=== PATIENT | female | born 1980 | race Native Hawaiian/Other Pacific Islander ===

== ENCOUNTER 2017-05-25 18:32 | Emergency (ER) | payer OTHER ==
[2017-05-25 19:51] LABS: Alanine Aminotransferase 25 units/L (7-56); Albumin 4.3 g/dL (3.9-5); Alkaline Phosphatase 60 units/L (35-129); Anion Gap 15 mmol/L; BUN/Creatinine Ratio 23; Blood Urea Nitrogen 14 mg/dL (7-17); Calcium 9.2 mg/dL (8.4-10.2); Carbon Dioxide 25 mmol/L (22-30); Chloride 99.5 mmol/L (98-107); Glucose 97 mg/dL (65-100); Sodium 135 mmol/L (137-145); Total Protein 6.5 g/dL (6.3-8.2)
[2017-05-25 20:25] LABS: Urine Drugs of Abuse Note Disclamer
[2017-05-25 20:26] LABS: Basophils % (Auto) 0.4 % (0.0-1.8); Eosinophils % (Auto) 0.6 % (0.0-4.3); Hematocrit 41.9 % (30.3-42.9); Hemoglobin 14.2 gm/dl (10.1-14.3); Mean Corpuscular HGB Conc 34 % (30-34); Mean Corpuscular Hemoglobin 30 pg (28-32); Mean Corpuscular Volume 87 fl (79-97); Platelet Count 266 K/mm3 (140-440); Red Blood Count 4.81 M/mm3 (3.65-5.03); Red Cell Distribution Width 13.4 % (13.2-15.2); White Blood Count 10.7 K/mm3 (4.5-11.0)
[2017-05-25 20:58] LABS: Bilirubin,Urine NEG (Negative); Blood,Urine NEG (Negative); Ketones,Urine NEG (Negative); Leukocyte Esterase,Urine NEG (Negative); Mucus,Urine FEW /HPF; Nitrite,Urine NEG (Negative); Protein,Urine <15 mg/dL mg/dL (Negative); RBC,Urine < 1.0 /HPF (0.0-6.0); Urobilinogen,Urine < 2.0 mg/dL (<2.0); WBC,Urine < 1.0 /HPF (0.0-6.0)
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
[2017-05-25] MEDS ORDERED: TORADOL IM ONE (21:33)
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
[2017-05-26 01:21] VITALS: BP 129/69
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
== END 2017-05-26 03:49 | disposition home or self-care (01) ==
LOC: ED 18:32
DX: M54.2 Cervicalgia (principal); M54.5 Low back pain; M54.6 Pain in thoracic spine; M47.9 Spondylosis, unspecified; Z98.51 Tubal ligation status; V89.2XXA Person injured in unspecified motor-vehicle accident, traffic, initial encounter; Y93.89 Activity, other specified; Y99.8 Other external cause status; Y92.89 Other specified places as the place of occurrence of the external cause
CPT/HCPCS: 36415; 72125; 72128; 72131; 73502; 80053; 80307; 81001; 81025; 85025; 93005; 93010; 96372; 99285; J1885

== ENCOUNTER 2019-03-11 22:38 | Emergency (ER) | payer SELFPAY ==
[2019-03-11 23:41] VITALS: BP 143/84
[2019-03-12 01:20] LABS: Red Blood Count 4.63 M/mm3 (3.65-5.03)
[2019-03-12 01:21] LABS: Basophils % (Auto) 0.4 % (0.0-1.8); Hemoglobin 14.1 gm/dl (10.1-14.3); Lymphocytes % (Auto) 27.2 % (13.4-35.0); Mean Corpuscular HGB Conc 34 % (30-34); Mean Corpuscular Volume 89 fl (79-97); Mean Platelet Volume 7.8 fl (6-12); Platelet Count 273 K/mm3 (140-440); Red Cell Distribution Width 13.8 % (13.2-15.2)
[2019-03-12 01:22] LABS: Eosinophils # (Auto) 0.2 K/mm3 (0.0-0.4); Lymphocytes # (Auto) 2.8 K/mm3 (1.2-5.4); Monocytes # (Auto) 0.9 K/mm3 (0.0-0.8)
[2019-03-12 01:39] LABS: Alanine Aminotransferase 20 units/L (7-56); Albumin 4.3 g/dL (3.9-5); BUN/Creatinine Ratio 20; Blood Urea Nitrogen 16 mg/dL (7-17); Calcium 9.3 mg/dL (8.4-10.2); Hemolysis Index 3
[2019-03-12 01:45] LABS: Mucus,Urine FEW /HPF
[2019-03-12 02:41] LABS: Bilirubin,Urine Negative (Negative); Color,Urine Yellow (Yellow)
[2019-03-12 02:42] LABS: Blood,Urine Negative (Negative)
[2019-03-12] MEDS ORDERED: MORPHINE IV ONE (05:57)
[2019-03-12] MEDS ORDERED: NACL 0.9% 1000 ML 1,000 ML IV ONE (05:57)
[2019-03-12] MEDS ORDERED: ZOFRAN IV ONE (05:57)
[2019-03-12] MEDS ORDERED: PEPCID IV ONE (05:58)
--- NOTE | 2019-03-12 07:18 | Cat Scan Report ---
CT of the abdomen and pelvis with contrast INDICATION: Abdominal pain with nausea and vomiting COMPARISON: None FINDINGS: Lung bases are clear. The liver, spleen, pancreas, adrenal glands and kidneys all appear no rmal. No definite gallbladder or biliary tree abnormality. No fluid or adenopathy in the upper abdome n. CT of the pelvis shows a normal appendix. There are no ureteral stones seen. No stone fragments seen laterally. Multiple uterine fibroids are present however. No diverticulosis or diverticulitis. No her geenva or bowel obstruction. No significant skeletal lesion. There is a 2.4 cm right ovarian cyst withou t free fluid. IMPRESSION: Uterine fibroids with right ovarian cyst. Otherwise negative study. Automated exposure control was utilized to diminish radiation dose. Signer Name: Fazal Espinosa MD Signed: 03/12/2019 7:14 AM Workstation Name: [id number]
--- NOTE | 2019-03-12 07:37 | Emergency Department Report ---
HPI - General Chief Complaint: Abdominal Pain Time Seen by Provider: 03/12/19 07:08 - HPI HPI: PT COMES TO ER CO OF ABD PAIN WITH N/V. PAIN IS ACHY IN LOWER BILATERAL PAIN. VSS. NON TOXIC. HAS TAKEN NOTHING AT HOME. 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 ED Past Medical Hx - Past Medical History Previous Medical History?: Yes Additional medical history: Ovarian Cyst - Surgical History Past Surgical History?: Yes Additional Surgical History: tubal ligation - Social History Smoking Status: Never Smoker Substance Use Type: None - Medications Home Medications: Home Medications Medication Instructions Recorded Confirmed Last Taken Type Ondansetron [Zofran Odt] 4 mg PO Q8HR PRN #10 tab.rapdis 03/12/19 Unknown Rx ED Review of Systems ROS: Stated complaint: ABDOMINAL PAIN AROUNG RIB CAGE/BURNING/SWOLLING Other details as noted in HPI Comment: All other systems reviewed and negative Physical Exam - Physical Exam Vital Signs: Vital Signs 03/11/19 23:40 Temperature 97.6 F Pulse Rate 67 Respiratory 18 Rate Blood Pressure 143/84 O2 Sat by Pulse 100 Oximetry Physical Exam: A/O X 4 S1S2 LUNGS CTA ABD SNT AMBULATORY NEUROVASC INTACT ED Course Vital Signs 03/11/19 23:40 Temperature 97.6 F Pulse Rate 67 Respiratory 18 Rate Blood Pressure 143/84 O2 Sat by Pulse 100 Oximetry ED Medical Decision Making - Lab Data Result diagrams: 03/11/19 23:52 03/11/19 23:52 - Radiology Data Radiology results: report reviewed, image reviewed - Medical Decision Making Labs 03/11/19 03/11/19 03/11/19 23:52 23:52 23:52 WBC 10.3 RBC 4.63 Hgb 14.1 Hct 41.0 MCV 89 MCH 30 MCHC 34 RDW 13.8 Plt Count 273 Lymph % (Auto) 27.2 [place] % (Auto) 9.0 H Eos % (Auto) 2.0 Baso % (Auto) 0.4 Lymph # 2.8 [place] # 0.9 H Eos # 0.2 Baso # 0.0 Seg Neutrophils % 61.4 Seg Neutrophils # 6.3 Sodium 140 Potassium 4.2 Chloride 104.1 Carbon Dioxide 27 Anion Gap 13 BUN 16 Creatinine 0.8 Estimated GFR > 60 BUN/Creatinine Ratio 20 Glucose 110 H Calcium 9.3 Total Bilirubin 0.30 AST 18 ALT 20 Alkaline Phosphatase 69 Total Protein 7.5 Albumin 4.3 Albumin/Globulin Ratio 1.3 Lipase 60 HCG, Qual Negative Urine Color Urine Turbidity Urine pH Ur Specific [place] Urine Protein Urine Glucose (UA) Urine Ketones Urine Blood Urine Nitrite Ur Reducing Substances Urine Bilirubin Urine Ictotest Urine Urobilinogen Ur Leukocyte Esterase Urine WBC (Auto) Urine RBC (Auto) U Epithel Cells (Auto) Urine Mucus 03/12/19 00:25 WBC RBC Hgb Hct MCV MCH MCHC RDW Plt Count Lymph % (Auto) [place] % (Auto) Eos % (Auto) Baso % (Auto) Lymph # [place] # Eos # Baso # Seg Neutrophils % Seg Neutrophils # Sodium Potassium Chloride Carbon Dioxide Anion Gap BUN Creatinine Estimated GFR BUN/Creatinine Ratio Glucose Calcium Total Bilirubin AST ALT Alkaline Phosphatase Total Protein Albumin Albumin/Globulin Ratio Lipase HCG, Qual Urine Color Yellow Urine Turbidity Hazy Urine pH 6.0 Ur Specific [place] 1.030 Urine Protein 30 mg/dl Urine Glucose (UA) Negative Urine Ketones Negative Urine Blood Negative Urine Nitrite Negative Ur Reducing Substances Not Reportable Urine Bilirubin Negative Urine Ictotest Not Reportable Urine Urobilinogen 0.0 Ur Leukocyte Esterase Negative Urine WBC (Auto) 2.0 Urine RBC (Auto) 3.0 U Epithel Cells (Auto) 3.0 Urine Mucus Few Vital Signs 03/11/19 23:40 Temperature 97.6 F Pulse Rate 67 Respiratory 18 Rate Blood Pressure 143/84 O2 Sat by Pulse [address] NOTED MEDICATED FOR PAIN IN ER WITH RELIEF DC HOME WITH FAMILY AND OBGYN FOLLOW UP - Differential Diagnosis RO PREG/UTI/ACUTE ABD Critical care attestation.: If time is entered above; I have spent that time in minutes in the direct care of this critically ill patient, excluding procedure time. ED Disposition Clinical Impression: Uterine fibroid, Ovarian cyst Disposition: DC-01 TO HOME OR SELFCARE Is pt being admited?: No Does the pt Need Aspirin: No Condition: Stable Instructions: Uterine Fibroids (ED), Ovarian Cyst (ED) Additional Instructions: MOTRIN OR TYLENOL OVER THE COUNTER FOR PAIN WARM COMPRESSES TO ABDOMEN FOLLOW UP WITH SPECIALIST REFERRAL BELOW TAKE THIS PAPER WORK WITH YOU TO THE VISIT DIET AND ACTIVITY TOLERATED Referrals: RAHUL TONG MD [Staff Physician] - 3-5 Days Time of Disposition: 07:37 Print Language: THAI
== END 2019-03-12 08:07 | disposition home or self-care (01) ==
LOC: ED 22:38
DX: N83.291 Other ovarian cyst, right side (principal); D25.9 Leiomyoma of uterus, unspecified; Z98.51 Tubal ligation status; Z79.899 Other long term (current) drug therapy
CPT/HCPCS: 36415; 74177; 80053; 81001; 83690; 84703; 85025; 96361; 96374; 96375; 99284; J2270; J2405; J7030; Q9967

== ENCOUNTER 2020-12-01 00:31 | Emergency (ER) | payer SELFPAY ==
[2020-12-01] MEDS ORDERED: ONDANSETRON 4 MG/2 ML INJ IV ONE (07:34)
[2020-12-01] MEDS ORDERED: MORPHINE 4 MG/1 ML INJ IV ONE (07:34)
--- NOTE | 2020-12-01 07:39 | Emergency Department Report ---
ED Abdominal Pain HPI - General Chief Complaint: Abdominal Pain Stated Complaint: ABDOMINAL PAIN Time Seen by Provider: 12/01/20 07:27 Source: patient Mode of arrival: Ambulatory Limitations: Language Barrier - History of Present Illness Initial Comments: Patient is 40 years old morbidly obese female with no significant past medical history. Patient s/p: Cholecystectomy last year. Patient presented to the ER complaining of right upper quadrant and right flank pain for the last 7 days. Patient described her pain as sharp with no radiation. Patient denied any nausea, vomiting or diarrhea. She also denied any urinary frequency or dysuria. No vaginal discharge or vaginal bleeding. MD Complaint: abdominal pain -: days(s) (7) Location: RUQ, R flank Radiation: none Migration to: no migration Severity: moderate Severity scale (0 -10): 6 Quality: sharp Consistency: constant - Related Data Previous Rx's Medication Instructions Recorded Last Taken Type Docusate Sodium [Colace] 100 mg PO BID PRN #20 capsule 10/24/19 Unknown Rx oxyCODONE /ACETAMINOPHEN [Percocet 1 tab PO Q6HR PRN #14 tablet 10/24/19 Unknown Rx 5/325] Ondansetron [Zofran Odt] 4 mg PO Q8HR PRN #14 tab.rapdis 12/01/20 Unknown Rx traMADoL [Ultram 50 MG tab] 50 mg PO Q4HR PRN #14 tablet 12/01/20 Unknown Rx Allergies Allergy/AdvReac Type Severity Reaction Status Date / Time No Known Allergies Allergy Verified 05/25/17 18:57 ED Review of Systems ROS: Stated complaint: ABDOMINAL PAIN Other details as noted in HPI Comment: All other systems reviewed and negative Constitutional: denies: chills, fever Respiratory: denies: cough, shortness of breath, SOB with exertion Gastrointestinal: abdominal pain. denies: nausea, vomiting, diarrhea, constipation, hematemesis, melena, hematochezia Genitourinary: denies: urgency, dysuria Musculoskeletal: back pain Neurological: denies: headache, weakness ED Past Medical Hx - Past Medical History Previous Medical History?: Yes Hx Hypertension: No Hx Liver Disease: No Hx Renal Disease: No Additional medical history: Ovarian Cyst - Surgical History Past Surgical History?: Yes Hx Cholecystectomy: Yes Additional Surgical History: tubal ligation - Social History Smoking Status: Never Smoker Substance Use Type: None - Medications Home Medications: Home Medications Medication Instructions Recorded Confirmed Last Taken Type Docusate Sodium [Colace] 100 mg PO BID PRN #20 capsule 10/24/19 Unknown Rx oxyCODONE /ACETAMINOPHEN [Percocet 1 tab PO Q6HR PRN #14 tablet 10/24/19 Unknown Rx 5/325] Ondansetron [Zofran Odt] 4 mg PO Q8HR PRN #14 tab.rapdis 12/01/20 Unknown Rx traMADoL [Ultram 50 MG tab] 50 mg PO Q4HR PRN #14 tablet 12/01/20 Unknown Rx ED Physical Exam - General Limitations: Language Barrier General appearance: alert, in distress (pain) - Head Head exam: Present: atraumatic, normocephalic - Eye Eye exam: Present: normal appearance - ENT ENT exam: Present: normal exam, normal orophraynx, mucous membranes moist - Neck Neck exam: Present: normal inspection, full ROM. Absent: tenderness, meningismus - Respiratory Respiratory exam: Present: normal lung sounds bilaterally - Cardiovascular Cardiovascular Exam: Present: regular rate, normal rhythm, normal heart sounds - GI/Abdominal GI/Abdominal exam: Present: soft, tenderness, normal bowel sounds. Absent: distended, guarding, rebound, rigid, organomegaly, mass, bruit, pulsatile mass - Extremities Exam Extremities exam: Present: normal inspection, full ROM, normal capillary refill. Absent: tenderness - Back Exam Back exam: Present: normal inspection, full ROM. Absent: CVA tenderness (R), CVA tenderness (L) - Neurological Exam Neurological exam: Present: alert, oriented X3, CN II-XII intact - Psychiatric Psychiatric exam: Present: normal mood - Skin Skin exam: Present: warm, intact, normal color ED Course Vital Signs 12/01/20 12/01/20 12/01/20 00:43 07:44 07:45 Temperature 98.2 F Pulse Rate 73 60 Respiratory 20 13 Rate Blood Pressure 140/84 O2 Sat by Pulse 100 99 98 Oximetry 12/01/20 12/01/20 12/01/20 08:00 08:30 09:00 Temperature Pulse Rate 64 62 61 Respiratory 13 12 12 Rate Blood Pressure 129/79 127/74 129/59 O2 Sat by Pulse 100 100 99 Oximetry 12/01/20 12/01/20 12/01/20 09:30 10:00 10:40 Temperature Pulse Rate 60 Respiratory 12 19 Rate Blood Pressure 118/59 110/55 123/70 O2 Sat by Pulse 100 99 99 Oximetry 12/01/20 12/01/20 11:00 11:16 Temperature Pulse Rate 59 L 59 L Respiratory 14 Rate Blood Pressure 104/50 123/70 O2 Sat by Pulse 100 100 Oximetry ED Medical Decision Making - Lab Data Result diagrams: 12/01/20 08:28 12/01/20 08:28 - Radiology Data Radiology results: report reviewed - Medical Decision Making Patient is 40 years old morbidly obese female with no significant past medical history. Patient s/p: Cholecystectomy last year. Patient presented to the ER complaining of right upper quadrant and right flank pain for the last 7 days. Patient described her pain as sharp with no radiation. Patient denied any nausea, vomiting or diarrhea. She also denied any urinary frequency or dysuria. No vaginal discharge or vaginal bleeding. Labs reviewed and is unremarkable. CT abdomen and pelvis showed no significant abnormality however there is a uterine fibroid. Patient received multiple doses of pain medication including morphine and fentanyl. Patient stated that she is feeling much better. Patient advised to follow-up with commercial production editor in the next 2 to 3 days and to return to the ER if she develop any new symptoms. Critical care attestation.: If time is entered above; I have spent that time in minutes in the direct care of this critically ill patient, excluding procedure time. ED Disposition Clinical Impression: Acute abdominal pain, Uterine fibroid Disposition: - TO HOME OR SELFCARE Is pt being admited?: No Condition: Stable Instructions: Abdominal Pain, Adult, Uterine Fibroids, [id number], Abdominal Pain (ED) Prescriptions: traMADoL [Ultram 50 MG tab] 50 mg PO Q4HR PRN #14 tablet PRN Reason: Pain Ondansetron [Zofran Odt] 4 mg PO Q8HR PRN #14 tab.rapdis PRN Reason: Nausea And Vomiting Referrals: PRIMARY CARE,MD [Primary Care Provider] - 3-5 Days Forms: Work/School Release Form(ED)
[2020-12-01] MEDS ORDERED: fentaNYL 100 MCG/2 ML INJ ONE (08:27)
[2020-12-01 08:38] LABS: Bilirubin,Urine NEG (Negative); Blood,Urine NEG (Negative); Color,Urine Straw (Yellow); Protein,Urine <15 mg/dL mg/dL (Negative); Urobilinogen,Urine < 2.0 mg/dL (<2.0)
[2020-12-01] MEDS ORDERED: fentaNYL 250 MCG/5 ML INJ IV ONE (08:44)
[2020-12-01 08:56] LABS: Basophils # (Auto) 0.1 K/mm3 (0.0-0.1); Basophils % (Auto) 0.8 % (0.0-1.8); Eosinophils # (Auto) 0.2 K/mm3 (0.0-0.4); Eosinophils % (Auto) 2.3 % (0.0-4.3); Hematocrit 42.1 % (30.3-42.9); Hemoglobin 13.8 gm/dl (10.1-14.3); Lymphocytes # (Auto) 2.3 K/mm3 (1.2-5.4); Lymphocytes % (Auto) 22.7 % (13.4-35.0); Mean Corpuscular HGB Conc 33 % (30-34); Mean Corpuscular Volume 87 fl (79-97); Monocytes # (Auto) 0.7 K/mm3 (0.0-0.8); Monocytes % (Auto) 6.8 % (0.0-7.3); Platelet Count 282 K/mm3 (140-440); Red Blood Count 4.86 M/mm3 (3.65-5.03); Red Cell Distribution Width 13.7 % (13.2-15.2)
[2020-12-01] MEDS ORDERED: fentaNYL 100 MCG/2 ML INJ IV ONE (09:00)
[2020-12-01 09:14] LABS: Alanine Aminotransferase 19 units/L (7-56); Albumin 3.7 g/dL (3.9-5); Blood Urea Nitrogen 11 mg/dL (7-17); Hemolysis Index 19
[2020-12-01 10:01] LABS: BUN/Creatinine Ratio 18; Bilirubin,Direct < 0.2 mg/dL (0-0.2)
--- NOTE | 2020-12-01 11:01 | Cat Scan Report ---
CT ABDOMEN AND PELVIS WITH IV CONTRAST INDICATION: Abdominal pain. COMPARISON: CT 10/23/2019 TECHNIQUE: All CT scans at this facility use dose modulation, automated exposure control, iterative reconstructi on or weight based dosing, when appropriate, to reduce radiation dose to as low as reasonably achieva ble. FINDINGS: Lung Bases: No significant abnormality. Skeletal System: No acute abnormality. ABDOMEN: Liver: No significant abnormality. Gallbladder: Removed. Bile Ducts: No intrahepatic biliary dilatation. The common duct measures 6 mm. Pancreas: No significant abnormality. Spleen: No significant abnormality. Adrenals: No significant abnormality. Right Kidney: No significant abnormality. Left Kidney: No significant abnormality. Upper GI tract: No significant abnormality. Lymph Nodes: No significant adenopathy. Aorta: No significant abnormality. Additional Findings: No significant abnormality. PELVIS: Colon: No acute abnormality. Diverticulosis is noted. Urinary Bladder and Distal Ureters: No significant abnormality. Appendix: No significant abnormality. Lymph Nodes: No significant adenopathy. Additional Findings: Tubal ligation clips are again noted. Uterine fibroid again noted. IMPRESSION: 1. Common duct measures 6 mm in diameter. This is approaching the upper limits of normal and could b e due at least in part to prior cholecystectomy. No intrahepatic biliary dilatation is seen. 2. Incidental findings, as above. Signer Name: John Ramon MD Signed: 12/01/2020 10:56 AM Workstation Name: [id number]
[2020-12-01 11:22] VITALS: BP 123/70
== END 2020-12-01 11:30 | disposition home or self-care (01) ==
LOC: ED 00:31
DX: D25.9 Leiomyoma of uterus, unspecified (principal); Z90.49 Acquired absence of other specified parts of digestive tract; Z98.51 Tubal ligation status; Z79.899 Other long term (current) drug therapy
CPT/HCPCS: 36415; 74177; 80048; 80076; 81001; 83690; 84703; 85025; 96374; 96375; 99284; J2270; J2405; J3010; Q9967

== ENCOUNTER 2021-01-21 18:16 | Emergency (ER) | payer SELFPAY ==
[2021-01-21 19:11] LABS: Basophils # (Auto) 0.1 K/mm3 (0.0-0.1); Eosinophils # (Auto) 0.1 K/mm3 (0.0-0.4); Eosinophils % (Auto) 1.5 % (0.0-4.3); Hematocrit 40.8 % (30.3-42.9); Hemoglobin 13.4 gm/dl (10.1-14.3); Lymphocytes # (Auto) 2.4 K/mm3 (1.2-5.4); Mean Corpuscular HGB Conc 33 % (30-34); Mean Corpuscular Volume 88 fl (79-97); Monocytes # (Auto) 0.9 K/mm3 (0.0-0.8); Monocytes % (Auto) 10.1 % (0.0-7.3); Platelet Count 270 K/mm3 (140-440); Red Blood Count 4.65 M/mm3 (3.65-5.03); Red Cell Distribution Width 14.8 % (13.2-15.2)
[2021-01-21 19:12] LABS: Bilirubin,Urine NEG (Negative); Blood,Urine NEG (Negative); Color,Urine Yellow (Yellow); Mucus,Urine FEW /HPF; Protein,Urine <15 mg/dL mg/dL (Negative); RBC,Urine < 1.0 /HPF (0.0-6.0); Urobilinogen,Urine < 2.0 mg/dL (<2.0)
[2021-01-21 19:55] LABS: Alanine Aminotransferase 33 units/L (7-56); Albumin 4.3 g/dL (3.9-5); BUN/Creatinine Ratio 13; Blood Urea Nitrogen 10 mg/dL (7-17); Calcium 9.3 mg/dL (8.4-10.2); Hemolysis Index 16
--- NOTE | 2021-01-21 22:35 | Emergency Department Report ---
ED Abdominal Pain HPI - General Chief Complaint: Abdominal Pain Stated Complaint: STOMACH PAIN/BACK PUI?: No Time Seen by Provider: 01/21/21 22:28 Source: patient Mode of arrival: Wheelchair Limitations: Language Barrier - History of Present Illness Initial Comments: Patient is a 40-year-old female that presents emergency with severe right upper quadrant pain. Patient states been on a month however the patient stopped for 2 weeks. Patient states the pain returned yesterday and is unbearable. Patient states the pain is radiating to her right flank and right back. Patient states she was here a few weeks ago and was told that it was her fibroids in her uterus. Patient states she had no gallbladder problem. Patient that she never had a ultrasound of her right upper quadrant. Patient states states she saw her doctor was given some medications but the meds finished and the pain came back. Patient states she was seen in this hospital and discharged. Patient states she saw her primary care and her primary care center to a specialist and she has an appointment with the general surgeon on The of this month. Patient denies chest pain. Patient also complains of nausea vomiting. Patient denies blood in her vomitus. Patient denies diarrhea. Patient denies fever or chills. Patient denies recent travel. Patient denies recent international travel. Patient denies exposure to the novel coronavirus. Patient denies sick contacts. Patient denies fever and chills. Patient denies cough. Patient denies diarrhea. Patient denies coming in contact with anybody with symptoms of the novel coronavirus. MD Complaint: abdominal pain -: Sudden Location: RUQ Radiation: R flank, back Migration to: no migration Severity: severe Severity scale (0 -10): 10 Quality: stabbing Consistency: constant Improves With: rest Worsens With: eating, movement Associated Symptoms: nausea, vomiting. denies: diarrhea, fever, chills, constipation, dysuria, hematemesis, hematochezia Treatments Prior to Arrival: NSAIDs - Related Data LMP (females 10-50): last week Previous Rx's Medication Instructions Recorded Last Taken Type Docusate Sodium [Colace] 100 mg PO BID PRN #20 capsule 10/24/19 Unknown Rx traMADoL [Ultram 50 MG tab] 50 mg PO Q4HR PRN #14 tablet 12/01/20 Unknown Rx Ondansetron [Zofran ODT TAB] 4 mg PO Q6HR PRN #14 tab.rapdis 01/22/21 Unknown Rx oxyCODONE /ACETAMINOPHEN [Percocet 1 tab PO Q6HR PRN #12 tablet 01/22/21 Unknown Rx 5/325 mg] Allergies Allergy/AdvReac Type Severity Reaction Status Date / Time No Known Allergies Allergy Verified 01/21/21 18:37 ED Review of Systems ROS: Stated complaint: STOMACH PAIN/BACK Other details as noted in HPI Constitutional: denies: chills, fever Eyes: denies: eye pain, eye discharge, vision change ENT: denies: ear pain, throat pain Respiratory: denies: cough, shortness of breath, wheezing Cardiovascular: denies: chest pain, palpitations Endocrine: no symptoms reported Gastrointestinal: as per HPI, abdominal pain, nausea, vomiting. denies: diarrhea Genitourinary: denies: urgency, dysuria, discharge Musculoskeletal: denies: back pain, joint swelling, arthralgia Skin: denies: rash, lesions Neurological: denies: headache, weakness, paresthesias Psychiatric: denies: anxiety, depression Hematological/Lymphatic: denies: easy bleeding, easy bruising ED Past Medical Hx - Past Medical History Previous Medical History?: Yes Hx Hypertension: No Hx Liver Disease: No Hx Renal Disease: No Additional medical history: Ovarian Cyst - Surgical History Past Surgical History?: Yes Hx Cholecystectomy: Yes Additional Surgical History: tubal ligation - Family History Family history: no significant - Social History Smoking Status: Never Smoker Substance Use Type: None - Medications Home Medications: Home Medications Medication Instructions Recorded Confirmed Last Taken Type Docusate Sodium [Colace] 100 mg PO BID PRN #20 capsule 10/24/19 Unknown Rx traMADoL [Ultram 50 MG tab] 50 mg PO Q4HR PRN #14 tablet 12/01/20 Unknown Rx Ondansetron [Zofran ODT TAB] 4 mg PO Q6HR PRN #14 tab.rapdis 01/22/21 Unknown Rx oxyCODONE /ACETAMINOPHEN [Percocet 1 tab PO Q6HR PRN #12 tablet 01/22/21 Unknown Rx 5/325 mg] ED Physical Exam - General Limitations: No Limitations General appearance: alert, in no apparent distress - Head Head exam: Present: atraumatic, normocephalic - Eye Eye exam: Present: normal appearance - ENT ENT exam: Present: mucous membranes moist - Neck Neck exam: Present: normal inspection - Respiratory Respiratory exam: Present: normal lung sounds bilaterally. Absent: respiratory distress - Cardiovascular Cardiovascular Exam: Present: regular rate, normal rhythm. Absent: systolic mur mur, diastolic murmur, rubs, gallop - GI/Abdominal GI/Abdominal exam: Present: soft, tenderness (Right upper quadrant tenderness to palpation.), normal bowel sounds - Extremities Exam Extremities exam: Present: normal inspection - Back Exam Back exam: Present: normal inspection - Neurological Exam Neurological exam: Present: alert, oriented X3 - Psychiatric Psychiatric exam: Present: normal affect, normal mood - Skin Skin exam: Present: warm, dry, intact, normal color. Absent: rash ED Course - Reevaluation(s) Reevaluation #1: Patient states he is feeling much better. Patient denies pain. Patient denies nausea vomiting. I discussed all results and clinical findings with patient. I discussed plan of care with patient. Patient agrees with plan of care. Patient is stable for discharge. Patient will be discharged home. Patient given discharge instructions. Patient voiced understanding of discharge instructions. 01/22/21 01:20 ED Medical Decision Making - Lab Data Result diagrams: 01/21/21 18:54 01/21/21 18:54 - Medical Decision Making Patient is a 40-year-old female who presents emergency room with complaints of right upper quadrant pain. Patient had labs done which were essentially unremarkable. hCG was ordered due to the amount of pain patient was having. Patient had a CT to rule out acute abdominal process. Patient CT scan was negative for acute findings. Clinical findings consistent with biliary colic. Patient had UA which was negative. Patient given fluids, pain meds and nausea medication. Patient responded well to treatment. Patient is asymptomatic upon discharge. Patient stable for discharge. Patient does not require any further emergency medical services or inpatient services. Patient will need to follow- up with a general surgeon and all round butcher for further evaluation treatment. - Differential Diagnosis Cholecystitis, biliary colic, abdominal pain, nausea, vomiting. Critical care attestation.: If time is entered above; I have spent that time in minutes in the direct care of this critically ill patient, excluding procedure time. ED Disposition Clinical Impression: Right upper quadrant abdominal pain, Biliary colic Disposition: TO HOME OR SELFCARE Is pt being admited?: No Does the pt Need Aspirin: No Condition: Stable Instructions: Abdominal Pain (ED), Abdominal Pain, Adult, [id number], Biliary Colic, Adult Additional Instructions: Patient to follow-up with primary care in 2 to 3 days. Patient to follow-up with general surgery and gastroenterology in 2 to 3 days. Patient to rest. Patient to increase water. Patient to eat a low-fat diet. Patient to avoid fat and meat products. Patient to take Tylenol or ibuprofen as needed for pain. Patient to take meds as directed. Patient to return to the ER if condition worsens, changes or new symptoms arise. Prescriptions: oxyCODONE /ACETAMINOPHEN [Percocet 5/325 mg] 1 tab PO Q6HR PRN #12 tablet PRN Reason: Pain Ondansetron [Zofran ODT TAB] 4 mg PO Q6HR PRN #14 tab.rapdis PRN Reason: Nausea And Vomiting Referrals: PRIMARY CARE, [Primary Care Provider] - 2-3 Days KIRK FREEMAN MD [Staff Physician] - 2-3 Days BRE MARTÍNEZ DO [Staff Physician] - 2-3 Days Time of Disposition: 01:27 Print Language: HONDURAN
[2021-01-22] MEDS ORDERED: HYDROmorphone 1 MG/1 ML INJ IV ONE (00:22)
[2021-01-22] MEDS ORDERED: ONDANSETRON 4 MG/2 ML INJ IV ONE (00:22)
--- NOTE | 2021-01-22 00:31 | Cat Scan Report ---
CT ABDOMEN AND PELVIS WITH IV CONTRAST INDICATION: Right upper quadrant abdominal pain TECHNIQUE: Following the administration of intravenous contrast, multiple axial CT images of the abdo men and pelvis were acquired. Sagittal and coronal reformats were obtained. All CT performed at this facility utilize dose reduction techniques including automated exposure control, iterative reconstru ction and weight based dosing when appropriate to reduce patient radiation dose to as low as reasonab ly achievable. COMPARISON: CT of the abdomen and pelvis, 12/01/2020 FINDINGS: Limited imaging of the bilateral lung bases demonstrates no acute abnormality. ABDOMEN: There has been previous cholecystectomy. There is mild stable prominence of the common bile duct. The liver, spleen, pancreas, bilateral adrenal glands and bilateral kidneys show no evidence of acute ab normality. The abdominal aorta is normal in caliber. There is no evidence of bowel obstruction or ирина e fluid. The appendix is visualized and appears normal. PELVIS: The uterus is again noted to be enlarged and contains multiple fibroids. The urinary bladder appears normal. There has been previous tubal ligation. There is sigmoid diverticulosis without evidence for diverticulitis. BONES AND SOFT TISSUES: No significant abnormality. IMPRESSION: 1. No CT evidence of acute inflammatory or obstructive process within the abdomen or pelvis. Signer Name: Chloe Riggs MD Signed: 01/22/2021 12:27 AM Workstation Name: [id number]
[2021-01-22 01:56] VITALS: BP 128/74
== END 2021-01-22 01:54 | disposition home or self-care (01) ==
LOC: ED 18:16
DX: K80.50 Calculus of bile duct without cholangitis or cholecystitis without obstruction (principal); R10.11 Right upper quadrant pain; Z79.899 Other long term (current) drug therapy; Z90.49 Acquired absence of other specified parts of digestive tract; Z98.51 Tubal ligation status
CPT/HCPCS: 36415; 74177; 80053; 81001; 84703; 85025; 96374; 96375; 99284; J1170; J2405; Q9967